=== PATIENT | male | born 1950 | race Caucasian/White ===

== ENCOUNTER 2016-08-25 16:39 | Emergency (ER) | payer BC ==
[~2016-08-25] VITALS: Ht 180.3 cm; Wt 79.2 kg
[~2016-08-25 16:39] MED LIST: NEXI40CA PO
[2016-08-25 16:49] VITALS: BP 124/78; PULSE 68; RESP 20; TEMP 98; O2SAT 96
[2016-08-25] MEDS ORDERED: htn med (16:56)
[2016-08-25] MEDS ORDERED: AZIT250T3 PO (17:13)
--- NOTE | 2016-08-25 17:14 | PD ---
HPI Chief Complaint: Cold / Flu Symptoms Time Seen by Provider: 17:06 Travel History International Travel<30 days: No Contact w/Intl Traveler<30days: No Traveled to known affect area: No History of Present Illness HPI 66-year-old male presents emergency department for evaluation of nasal congestion, cough, sore throat 2 weeks. Symptom onset was approximately 2 weeks ago. Patient reports at the time he thought he had a common cold with nasal congestion and sore throat. He then developed a cough that has lingered for approximately 2 weeks and over the last several days he reports it has become productive. He denies fevers, chills, nausea, vomiting, weakness, chest pain or short of breath. Symptom severity is mild. Patient's past medical history of hypertension. [facility] Past Medical History Narrative Medical Significant for hypertension GERD: Yes Past Surgical History Abdominal Surgery: Yes (HERNIA REPAIR) Tonsillectomy: Yes Other Surgery: Yes (BANDING HEMROIDS) Social History Alcohol Use: Yes (SOCIAL) Tobacco Use: No Substance Use: No Allergies-Medications (Allergen,Severity, Reaction): Coded Allergies: No Known Allergies (Unverified , 08/25/16) Reported Meds & Prescriptions Reported Meds & Active Scripts Active Reported [htn med] Review of Systems Except as stated in HPI: all other systems reviewed are Neg Physical Exam Narrative GENERAL: Alert, well-appearing male. Nontoxic appearing. No acute distress. SKIN: Focused skin assessment warm/dry. HEAD: Atraumatic. Normocephalic. EYES: Pupils equal and round. No scleral icterus. No injection or drainage. ENT: No nasal bleeding or discharge. Mucous membranes pink and moist. Mild pharyngeal erythema. No tonsillar exudates or swelling NECK: Trachea midline. No JVD. CARDIOVASCULAR: Regular rate and rhythm. No murmur appreciated. RESPIRATORY: No accessory muscle use. Clear to auscultation. Breath sounds equal bilaterally. No wheezing, rhonchi, rales. GASTROINTESTINAL: Abdomen soft, non-tender, nondistended. Hepatic and splenic margins not palpable. MUSCULOSKELETAL: No obvious deformities. No clubbing. No cyanosis. No edema. NEUROLOGICAL: Awake and alert. No obvious cranial nerve deficits. Motor grossly within normal limits. Normal speech. PSYCHIATRIC: Appropriate mood and affect; insight and judgment normal. Data Data Last Documented VS Vital Signs Date Time Temp Pulse Resp B/P Pulse Ox O2 Delivery O2 Flow Rate FiO2 08/25/16 16:49 98.0 68 20 124/78 96 MDM Medical Decision Making Medical Screen Exam Complete: Yes Emergency Medical Condition: Yes Differential Diagnosis Bronchitis, pneumonia, URI, influenza Narrative Course 66-year-old male presents emergency department for evaluation of cough 2 weeks. Patient reports that approximately 2 weeks ago he developed symptoms of the common cold. All symptoms resolved with the exception of a cough which has now become productive over the last 2 days. He denies fever, chills, chest pain , shortness breath. On exam his lungs are clear there are no adventitious breath sounds. He does have a harsh sounding cough. He will be treated with azithromycin for bronchitis and instructed to follow up with his doctor. He agrees to plan Diagnosis Primary Impression: Bronchitis Referrals: Primary Care Physician Patient Instructions: Acute Bronchitis (ED), General Instructions Additional Instructions: Take the medication as prescribed. Rest & Stay well hydrated by drinking plenty of fluids. Make an appointment for follow-up with her doctor for recheck. Return to the emergency department if he developed new or worsening symptoms. Scripts Azithromycin 250 Mg [id number] Mg PO DIRECTED #6 TAB Take 2 tabs (500 mg) on day 1 then 1 tab daily x 4 days. Prov:Nida Sal 08/25/16 Disposition: 01 DISCHARGE HOME Condition: Stable Nida Sal Aug 25, 2016 17:14
== END 2016-08-25 17:25 | disposition home or self-care (01) ==
LOC: PHEFT 16:39
DX: J40 Bronchitis, not specified as acute or chronic (principal)
CPT/HCPCS: 99283

== ENCOUNTER 2016-10-30 13:17 | Emergency (ER) | payer BC ==
[~2016-10-30] VITALS: Ht 180.3 cm; Wt 78.0 kg
[~2016-10-30 13:17] MED LIST changes: +AZIT250T3 PO; -NEXI40CA PO; +htn med
[2016-10-30 13:34] VITALS: BP 133/72; PULSE 58; RESP 16; TEMP 97.5; O2SAT 99
[2016-10-30] MEDS ORDERED: FINA5TAB2 PO (13:39)
[2016-10-30] MEDS ORDERED: LISI-515 PO (13:39)
[2016-10-30] MEDS ORDERED: ALOE (13:39)
[2016-10-30] MEDS ORDERED: FAMCICLOVIR 500 MG TAB PO ONE (14:00)
[2016-10-30] MEDS ORDERED: predniSONE 20 MG TAB PO ONE (14:00)
[2016-10-30] MEDS ORDERED: FAMC500T PO (14:01)
[2016-10-30] MEDS ORDERED: HYDR-3533 PO ×2 (14:01→14:03)
[2016-10-30] MEDS ORDERED: PRED20 PO (14:01)
--- NOTE | 2016-10-30 14:02 | PD ---
HPI Chief Complaint: Abdominal Pain Time Seen by Provider: 13:31 Travel History International Travel<30 days: No Contact w/Intl Traveler<30days: No Traveled to known affect area: No History of Present Illness HPI The patient is 66 years old. In the region of the T11 dermatome there is a radicular type of sensitivity at the most superficial level of the abdominal wall and posterior abdominal wall. This has been present for just under a week. It is been no rash. There is no fever nausea vomiting or diarrhea. The patient reports an occasional headache pain radiating into the region of the left groin. He has not felt a mass, lump, bulge, or sign of hernia otherwise. No fever. He has a history of chickenpox. PFS Past Medical History GERD: Yes Past Surgical History Abdominal Surgery: Yes (HERNIA REPAIR) Tonsillectomy: Yes Other Surgery: Yes (BANDING HEMROIDS) Social History Alcohol Use: Yes (SOCIAL) Tobacco Use: No Substance Use: No Allergies-Medications (Allergen,Severity, Reaction): Coded Allergies: No Known Allergies (Unverified , 10/30/16) Reported Meds & Prescriptions Reported Meds & Active Scripts Active Lortab (Hydrocodone-Acetaminophen) 5-325 Mg Tab 1-2 Tab PO Q6H PRN Famciclovir 500 Mg Tab 500 Mg PO TID 7 Days Prednisone 20 Mg Tab 40 Mg PO DAILY 4 Days Take 40 mg (2 tablets) daily for 5 days Reported [Aloe] Finasteride 5 Mg Tab 5 Mg PO DAILY Do not crush. Lisinopril 20 Mg Tab 20 Mg PO DAILY Review of Systems Except as stated in HPI: all other systems reviewed are Neg Physical Exam Narrative GENERAL: Well-nourished well-developed 66-year-old male pleasant SKIN: Warm and dry. HEAD: Atraumatic. Normocephalic. EYES: Pupils equal and round. No scleral icterus. No injection or drainage. ENT: No nasal bleeding or discharge. Mucous membranes pink and moist. NECK: Trachea midline. No JVD. CARDIOVASCULAR: Regular rate and rhythm. RESPIRATORY: No accessory muscle use. Clear to auscultation. Breath sounds equal bilaterally. GASTROINTESTINAL: Abdomen soft, non-tender, nondistended. Hepatic and splenic margins not palpable. MUSCULOSKELETAL: Extremities without clubbing, cyanosis, or edema. No obvious deformities. NEUROLOGICAL: Awake and alert. No obvious cranial nerve deficits. Motor grossly within normal limits. Five out of 5 muscle strength in the arms and legs. Normal speech. PSYCHIATRIC: Appropriate mood and affect; insight and judgment normal. Data Data Orders Orders Prednisone (Deltasone) (10/30/16 14:00) Famciclovir (Famvir) (10/30/16 14:00) MDM Medical Decision Making Medical Screen Exam Complete: Yes Emergency Medical Condition: Yes Differential Diagnosis Gastritis, pancreatitis, appendicitis, acute cholecystitis, ascending cholangitis, AAA, perforated viscous, mesenteric ischemia, hepatitis, cystitis, hydronephrosis/hydroureter/nephroureter calculus, mesenteric adenitis, biliary colic Narrative Course The patient has a presentation consistent with neuritis. He'll be discharged home with scripts as below. Return precautions discussed Diagnosis Primary Impression: Neuritis Referrals: Primary Care Physician 2 days Additional Instructions: You have a choice when it comes to health care, and we are glad that you chose [facility]. Hopefully, we have met your expectations on today's visit. You are welcome to return to [facility] at any time, as we are committed to meeting the health care needs of our community. Med/Other Pt SpecificInfo: Prescription(s) given Scripts Hydrocodone-Acetaminophen (Lortab) 5-325 Mg Tab 1-2 TAB PO Q6H Y for PAIN SCALE 6 TO 10, #20 TAB 0 Refills Prov: Aneudy Mai MD 10/30/16 Famciclovir (Famciclovir) 500 Mg Tab 500 MG PO TID for Mgmt Viral Infection for 7 Days, TAB 0 Refills Prov: Aneudy Mai MD 10/30/16 Prednisone (Prednisone) 20 Mg Tab 40 MG PO DAILY for 4 Days, #10 TAB 0 Refills Take 40 mg (2 tablets) daily for 5 days Prov: Aneudy Mai MD 10/30/16 Disposition: 01 DISCHARGE HOME Condition: Stable Aneudy Mai MD Oct 30, 2016 14:02
== END 2016-10-30 14:33 | disposition home or self-care (01) ==
LOC: PHED 13:17
DX: M79.2 Neuralgia and neuritis, unspecified (principal); K21.9 Gastro-esophageal reflux disease without esophagitis
CPT/HCPCS: 99284; J7512